=== PATIENT | female | born 1960 | race Caucasian/White ===

== ENCOUNTER → 2020-10-06 | Outpatient (CLI) | payer OTHER ==
--- NOTE | 2020-10-06 13:59 | RAD ---
DXA BONE DENSITY AXIAL History: Reason: POSTMENOPAUSAL / Spl. Instructions: / History: Comparison: None. TECHNIQUE: Dual energy x-ray absorptiometry of the lumbar spine and right hip was performed. T-score of average bone mineral density based was calculated based on standard deviations above or below the expected young adult normal value. Diagnostic definitions were established by the [employer]. FINDINGS: The average bone mineral density associated with L1-L4 is 1.215 g/cm^2, corresponding with a T-score of 0.3. The average total bone mineral density associated with right hip is 0.841 g/cm^2, corresponding with a T-score of -0.9. Isolated right femoral neck T score -1.6. Osteopenia according to the isolated rig ht femoral neck T score. Refer to the worksheets for full detail. IMPRESSION: 1. Osteopenia. Average bone mineral density yields a T-score between -1.0 and -2.5. Fracture risk is increased. Electronically signed by: Evans Alcantar DO (10/06/2020 1:56 PM) [id number]
--- NOTE | 2020-10-07 17:07 | RAD ---
Examination: Bilateral mammogram INDICATION: Screening COMPARISON: None. This is a new baseline. TECHNIQUE: CC,XCCL and MLO views of both breasts were obtained with 2-D technique and reviewed with c omputer-aided detection. FINDINGS: Heterogeneously dense breast parenchyma. Nodular parenchymal pattern compatible with benign cystic change. A dominant 1.6 cm oval isodense mass, partly circumscribed partly obscured is present in the lateral left breast at the approximate 3:00 position 5 cm. This needs additional imaging with targeted left b reast ultrasound. The right mammogram shows benign nodularity and is otherwise negative. IMPRESSION: Dominant 1.6 cm mass in the lateral left breast needs additional imaging with targeted left breast ul trasound. BI-RADS Category 0 Incomplete. Needs additional imaging evaluation. Recommend targeted ultrasound of the lateral left breast at the approximate 3:00 position 5 cm from t he nipple. Patient entered into a reminder system with targeted due date for next mammogram. Electronically signed by: Amish Mondragon MD (10/07/2020 5:05 PM) [id number]
== END ==
LOC: DXRAD 10:11
PROVIDERS: ATTEND Physician Assistant Medical
DX: Z12.31 Encounter for screening mammogram for malignant neoplasm of breast (principal); M85.88 Other specified disorders of bone density and structure, other site; N64.89 Other specified disorders of breast
CPT/HCPCS: 77063; 77067; 77080

== ENCOUNTER → 2020-11-12 | Outpatient (CLI) | payer OTHER ==
--- NOTE | 2020-11-13 14:05 | RAD ---
Limited left breast ultrasound. INDICATION: 60-year-old woman recalled from new baseline screening for mass in the lateral left breas t. COMPARISON: Bilateral screening mammogram of 10/06/2020. TECHNIQUE: Grayscale and color Doppler imaging of the lateral left breast was performed, in the area of mammographic interest. FINDINGS: At the left 3:00 position 3.5 cm from the nipple, a cluster of cysts is identified. One measures 1.2 cm in diameter and is anechoic, well-circumscribed and shows posterior acoustic enhancement. The othe r, next largest cystic structure measures 7 mm it has low level internal echoes and on the antiradial orientation, appears to have either spiculated or microlobulated margins. This is mildly suspicious. There may be an additional smaller cystic structure immediately superficial to it. Sonographic evalu ation of the axilla reveals no adenopathy. IMPRESSION: Mildly suspicious 7 mm complicated cyst in the lateral left breast. BI-RADS Category 4 Findings suspicious for malignancy. Recommend attempt at cyst aspiration and possible biopsy. Patient entered into a reminder system for due date of next mammogram Findings and recommendations communicated to the ordering provider's office where debra Villagomez took the telephone report on her behalf at 2:02 PM on 11/13/2020. Electronically signed by: Amish Mondragon MD (11/13/2020 2:03 PM) [id number]
== END ==
LOC: US 14:16
PROVIDERS: ATTEND Physician Assistant Medical
DX: R92.8 Other abnormal and inconclusive findings on diagnostic imaging of breast (principal); N60.02 Solitary cyst of left breast
CPT/HCPCS: 76641

== ENCOUNTER → 2021-03-19 | Outpatient (CLI) | payer OTHER ==
[2021-03-20 02:10] LABS: HEMOGLOBIN A1C 5.5 % (4.8-5.6)
== END ==
LOC: LAB 07:32
PROVIDERS: ATTEND Internal Medicine Cardiovascular Disease
DX: E78.5 Hyperlipidemia, unspecified (principal)
CPT/HCPCS: 36415; 80061; 83036; 86140